=== PATIENT | male | born 1965 | race African-American/Black ===

== ENCOUNTER 2019-02-05 12:27 | Inpatient (IN) | payer SELFPAY ==
[~2019-02-05] VITALS: Ht 177.8 cm; Wt 92.3 kg
[2019-02-05] MEDS ORDERED: NITROGLYCERIN 0.4MG TABLET SL SL PRN (13:00)
[2019-02-05] MEDS ORDERED: ASPIRIN 325MG TABLET PO ONE (13:00)
[2019-02-05] MEDS ORDERED: NITROGLYCERIN OINT 1GM/INCH UDPKT TD ONE (13:00)
[2019-02-05] MEDS ORDERED: METOCLOPRAMIDE HCL 10MG/2ML VIAL IV ONE (13:15)
[2019-02-05] MEDS ORDERED: MORPHINE SULFATE 4 MG/ML CPJ (NOT FOR IM USE) IV ONE (13:15)
[2019-02-05 13:26] LABS: BASOPHILS % 1.4 % (0.0-2.0); EOSINOPHILS % 1.6 % (0.0-5.0); HEMATOCRIT. 39.4 % (42.0-52.0); HEMOGLOBIN. 13.3 g/dL (14.0-18.0); LYMPHOCYTES % 22.3 % (20.0-50.0); MEAN CORPUSCULAR HEMOGLOBIN 28.6 pg (28.0-32.0); MEAN CORPUSCULAR VOLUME 85.1 fL (80.0-94.0); MEAN PLATELET VOLUME 8.4 fl (7.4-10.4); NEUTROPHILS % 66.7 % (40.0-76.0); PLATELET 191 x1000/uL (130-400); RED BLOOD CELL COUNT 4.63 mill/uL (4.7-6.1); RED CELL DISTRIBUTION WIDTH 14.2 % (11.6-14.6)
[2019-02-05 13:33] LABS: CHLORIDE 107 mEq/L (98-107)
[2019-02-05 15:35] LABS: CLARITY URINE CLEAR (CLEAR); COLOR URINE YELLOW (YELLOW); KETONES URINE TRACE (NEGATIVE); LEUKOCYTE ESTERASE URINE NEGATIVE (NEGATIVE); NITRITE URINE NEGATIVE (NEGATIVE); OCCULT BLOOD URINE NEGATIVE (NEGATIVE); PH URINE 6.5 (4.5-8.0); PROTEIN URINE 1+ (NEGATIVE); SPECIFIC GRAVITY URINE 1.025 (1.005-1.030)
[2019-02-05] MEDS ORDERED: KETOROLAC 30MG/ML VIAL IV ONE (16:15)
[2019-02-05] MEDS ORDERED: MAGNESIUM/ALUMINUM HYDROXIDE/SIMETHICONE 30ML UDC PO PRN (20:30)
[2019-02-05] MEDS ORDERED: ACETAMINOPHEN 325MG TABLET PO PRN (20:30)
[2019-02-05] MEDS ORDERED: ONDANSETRON HCL 4MG/2ML INJ IV PRN (20:30)
[2019-02-05] MEDS ORDERED: IPRATROPIUM/ALBUTEROL 0.5-3(2.5)MG/3ML NEB NEB PRN (20:30)
[2019-02-05 20:50] VITALS: BP 156/94
[2019-02-05] MEDS ORDERED: POTASSIUM CHLORIDE 20MEQ TABLET SR PO SCH (22:00)
[2019-02-05] MEDS: ENOXAPARIN 30MG/0.3ML SYR SUBCUT SCH ×2 (22:00→22:24)
[2019-02-05] MEDS: ZOLPIDEM TARTRATE 5MG TABLET PO PRN (22:25)
[2019-02-05] MEDS: HYDROCODONE/ACETAMINOPHEN 5/325MG TABLET PO PRN (22:25)
[2019-02-05] MEDS: CLONIDINE 0.1MG TABLET PO PRN (22:25)
[2019-02-06] VITALS: BP 132/88
[2019-02-06 04:00] VITALS: BP 155/96
[2019-02-06] MEDS: CLONIDINE 0.1MG TABLET PO PRN ×2 (05:07→09:50)
[2019-02-06 06:08] LABS: BASOPHILS % 1.2 % (0.0-2.0); EOSINOPHILS % 3.4 % (0.0-5.0); HEMATOCRIT. 39.4 % (42.0-52.0); HEMOGLOBIN. 13.1 g/dL (14.0-18.0); LYMPHOCYTES % 25.3 % (20.0-50.0); MEAN CORPUSCULAR HEMOGLOBIN 28.7 pg (28.0-32.0); MEAN CORPUSCULAR VOLUME 86.2 fL (80.0-94.0); MEAN PLATELET VOLUME 9.6 fl (7.4-10.4); MONOCYTES % 9.1 % (2.0-8.0); PLATELET 150 x1000/uL (130-400); RED BLOOD CELL COUNT 4.57 mill/uL (4.7-6.1); RED CELL DISTRIBUTION WIDTH 14.5 % (11.6-14.6)
[2019-02-06 06:23] LABS: CHLORIDE 108 mEq/L (98-107)
[2019-02-06 06:40] LABS: PHOSPHORUS 3.5 mg/dL (2.5-4.9)
[2019-02-06 06:42] LABS: LDL CHOLESTEROL 108 mg/dL (5-100)
[2019-02-06 06:44] LABS: HDL CHOLESTEROL 42 mg/dL (40-59)
[2019-02-06] MEDS: ENOXAPARIN 40MG/0.4ML SYR SUBCUT SCH (09:00)
[2019-02-06 11:00] VITALS: BP 168/120
[2019-02-06 12:00] VITALS: BP 138/98
[2019-02-06] MEDS: AMLODIPINE 10MG TABLET PO SCH (14:04)
[2019-02-06] MEDS: NEBIVOLOL HCL 5 MG TABLET PO SCH (14:05)
[2019-02-06 16:00] VITALS: BP 152/104
[2019-02-06] MEDS: ALPRAZOLAM 0.25 MG TABLET PO PRN (16:08)
[2019-02-06] MEDS: HYDROCODONE/ACETAMINOPHEN 5/325MG TABLET PO PRN ×2 (16:08→23:31)
[2019-02-06 20:00] VITALS: BP 138/96
[2019-02-06] MEDS: LISINOPRIL 10MG TABLET PO SCH (21:13)
[2019-02-06] MEDS: ZOLPIDEM TARTRATE 5MG TABLET PO PRN (21:18)
[2019-02-07] VITALS: BP 128/78
[2019-02-07 04:00] VITALS: BP 146/104
[2019-02-07] MEDS: CLONIDINE 0.1MG TABLET PO PRN ×2 (04:22→11:53)
[2019-02-07] MEDS: HYDROCODONE/ACETAMINOPHEN 5/325MG TABLET PO PRN ×2 (04:24→11:14)
[2019-02-07 06:42] LABS: BASOPHILS % 1.2 % (0.0-2.0); EOSINOPHILS % 3.7 % (0.0-5.0); HEMATOCRIT. 39.6 % (42.0-52.0); HEMOGLOBIN. 12.9 g/dL (14.0-18.0); LYMPHOCYTES % 30.5 % (20.0-50.0); MEAN CORPUSCULAR VOLUME 85.9 fL (80.0-94.0); MEAN PLATELET VOLUME 8.9 fl (7.4-10.4); MONOCYTES % 9.4 % (2.0-8.0); NEUTROPHILS % 55.2 % (40.0-76.0); PLATELET 192 x1000/uL (130-400); RED BLOOD CELL COUNT 4.61 mill/uL (4.7-6.1); RED CELL DISTRIBUTION WIDTH 14.7 % (11.6-14.6)
[2019-02-07 06:55] LABS: CHLORIDE 104 mEq/L (98-107)
[2019-02-07] MEDS: AMLODIPINE 10MG TABLET PO SCH (08:56)
[2019-02-07] MEDS: NEBIVOLOL HCL 5 MG TABLET PO SCH (08:56)
[2019-02-07] MEDS: LISINOPRIL 10MG TABLET PO SCH (08:56)
[2019-02-07] MEDS: ENOXAPARIN 40MG/0.4ML SYR SUBCUT SCH (09:00)
[2019-02-07] MEDS: NIFEDIPINE XL 60MG TAB PO SCH (15:00)
[2019-02-07 20:00] VITALS: BP 120/81
[2019-02-07] MEDS: LISINOPRIL 20MG TABLET PO SCH (21:21)
[2019-02-07] MEDS: CLONIDINE 0.1MG TABLET PO SCH (21:21)
[2019-02-07] MEDS: ZOLPIDEM TARTRATE 5MG TABLET PO PRN (21:25)
[2019-02-07] MEDS: DOCUSATE SODIUM 100MG CAPSULE PO PRN (21:25)
[2019-02-08] VITALS: BP 125/83
[2019-02-08] MEDS: GUAIFENESIN/CODEINE 200-20MG/10ML UDC PO PRN ×3 (00:12→16:39)
[2019-02-08 04:00] VITALS: BP 128/88
[2019-02-08] MEDS: CLONIDINE 0.1MG TABLET PO SCH ×3 (06:11→21:33)
[2019-02-08 08:06] LABS: BASOPHILS % 1.2 % (0.0-2.0); EOSINOPHILS % 2.6 % (0.0-5.0); HEMATOCRIT. 42.6 % (42.0-52.0); LYMPHOCYTES % 22.7 % (20.0-50.0); MEAN CORPUSCULAR HEMOGLOBIN 28.4 pg (28.0-32.0); MEAN PLATELET VOLUME 8.7 fl (7.4-10.4); MONOCYTES % 7.7 % (2.0-8.0); NEUTROPHILS % 65.8 % (40.0-76.0); PLATELET 213 x1000/uL (130-400); RED BLOOD CELL COUNT 4.95 mill/uL (4.7-6.1); RED CELL DISTRIBUTION WIDTH 14.4 % (11.6-14.6)
[2019-02-08] MEDS: LISINOPRIL 20MG TABLET PO SCH ×2 (09:00→21:00)
[2019-02-08] MEDS: NEBIVOLOL HCL 5 MG TABLET PO SCH (09:53)
[2019-02-08] MEDS: AMLODIPINE 10MG TABLET PO SCH (09:54)
[2019-02-08] MEDS: ENOXAPARIN 40MG/0.4ML SYR SUBCUT SCH ×2 (09:55→10:09)
[2019-02-08] MEDS: NIFEDIPINE XL 60MG TAB PO SCH (09:55)
[2019-02-08] MEDS: BUTALBITAL/ACETAMINOPHEN/CAFFEINE 50/325/40MG TABLET PO PRN ×3 (10:00→21:33)
[2019-02-08] MEDS: ALPRAZOLAM 0.25 MG TABLET PO PRN (15:25)
[2019-02-08 20:00] VITALS: BP 120/86
[2019-02-08] MEDS: ZOLPIDEM TARTRATE 5MG TABLET PO PRN (21:33)
[2019-02-09] VITALS: BP 105/68
[2019-02-09] MEDS: DOCUSATE SODIUM 100MG CAPSULE PO PRN (00:10)
[2019-02-09 04:00] VITALS: BP_SYST 118; BP_SYST 127; BP_SYST 128; BP_DIAS 71; BP_DIAS 73; BP_DIAS 81
[2019-02-09] MEDS: CLONIDINE 0.1MG TABLET PO SCH ×3 (05:16→14:00)
[2019-02-09] MEDS: BUTALBITAL/ACETAMINOPHEN/CAFFEINE 50/325/40MG TABLET PO PRN (05:18)
[2019-02-09 07:32] LABS: BASOPHILS % 1.2 % (0.0-2.0); EOSINOPHILS % 2.9 % (0.0-5.0); HEMATOCRIT. 39.8 % (42.0-52.0); HEMOGLOBIN. 13.1 g/dL (14.0-18.0); LYMPHOCYTES % 26.8 % (20.0-50.0); MEAN CORPUSCULAR HEMOGLOBIN 28.2 pg (28.0-32.0); MEAN CORPUSCULAR VOLUME 85.5 fL (80.0-94.0); MEAN PLATELET VOLUME 8.9 fl (7.4-10.4); MONOCYTES % 9.9 % (2.0-8.0); NEUTROPHILS % 59.2 % (40.0-76.0); PLATELET 192 x1000/uL (130-400); RED BLOOD CELL COUNT 4.66 mill/uL (4.7-6.1); RED CELL DISTRIBUTION WIDTH 14.5 % (11.6-14.6)
[2019-02-09 08:00] VITALS: BP 87/46
[2019-02-09 08:55] VITALS: BP 100/73
[2019-02-09] MEDS: AMLODIPINE 10MG TABLET PO SCH (08:58)
[2019-02-09] MEDS: LISINOPRIL 20MG TABLET PO SCH (08:58)
[2019-02-09] MEDS: NIFEDIPINE XL 60MG TAB PO SCH (08:58)
[2019-02-09] MEDS: NEBIVOLOL HCL 5 MG TABLET PO SCH (08:58)
[2019-02-09] MEDS ORDERED: CETIRIZINE 10MG TABLET PO SCH (09:00)
[2019-02-09 12:00] VITALS: BP 136/83
[2019-02-09] MEDS ORDERED: LISI-604 PO (12:38)
[2019-02-09] MEDS ORDERED: NIFE60TA64 PO (12:38)
[2019-02-09] MEDS ORDERED: AMLO10TA80 PO (12:38)
[2019-02-09 14:36] VITALS: BP 136/83
[2019-02-09] MEDS ORDERED: LACTULOSE 20G/30ML UDC PO NR (14:45)
[2019-02-09] MEDS: GUAIFENESIN/CODEINE 200-20MG/10ML UDC PO PRN (16:11)
== END 2019-02-09 17:10 | disposition home or self-care (01) | DRG 198 ==
LOC: ER 13:43 → 6WST 17:52 → EDBEDREQTM 17:58 → EDBEDREQ 17:58 → ENRESERV 19:55
PROVIDERS: ADMIT Family Medicine Adult Medicine; ATTEND Family Medicine Adult Medicine
DX: R07.89 Other chest pain (principal); I25.10 Atherosclerotic heart disease of native coronary artery without angina pectoris; N17.9 Acute kidney failure, unspecified; E44.1 Mild protein-calorie malnutrition; E87.6 Hypokalemia; G47.33 Obstructive sleep apnea (adult) (pediatric); N18.9 Chronic kidney disease, unspecified; R51 Headache; I12.9 Hypertensive chronic kidney disease with stage 1 through stage 4 chronic kidney disease, or unspecified chronic kidney disease; Z95.5 Presence of coronary angioplasty implant and graft; Z82.49 Family history of ischemic heart disease and other diseases of the circulatory system; Z87.09 Personal history of other diseases of the respiratory system; Z91.14 Patient's other noncompliance with medication regimen; Z68.29 Body mass index [BMI] 29.0-29.9, adult
CPT/HCPCS: 36415; 70544; 70553; 71045; 80048; 80061; 81003; 83735; 83880; 84100; 84443; 84484; 85379; 93005; 93306; 93970; 96374; 96375; 97162; 97165; 97535; 99285; J1650; J1885; J2270; J2405; J2765